=== PATIENT | male | born 1985 | race Caucasian/White ===

== ENCOUNTER 2019-09-14 20:11 | Emergency (ER) | payer MEDICAID ==
[~2019-09-14] VITALS: Ht 165.1 cm; Wt 75.4 kg
[2019-09-14 20:23] VITALS: Ht 165.1 cm; Wt 75.4 kg
[2019-09-14 21:19] VITALS: BP 113/83
== END 2019-09-14 21:15 | disposition home or self-care (01) ==
LOC: ED 20:11
DX: L03.011 Cellulitis of right finger (principal)